=== PATIENT | male | born 1955 | race Caucasian/White ===

== ENCOUNTER → 2021-08-09 | Outpatient (CLI) | payer MEDICARE ==
[~2021-08-09] MED LIST: ASPIRIN EC81 M1 PO; LIPITOR 20 MG T20 M1 PO; MONOPRIL20 MG PO; MONOSTAT PO; SIMVASTATIN10 MG PO; SINGULAIR 10 MG10 MG PO
== END ==
LOC: LAB 05:35
PROVIDERS: ATTEND Student in an Organized Health Care Education/Training Program
DX: Z01.812 Encounter for preprocedural laboratory examination (principal); Z20.822 Contact with and (suspected) exposure to COVID-19

== ENCOUNTER → 2021-08-11 | Outpatient (CLI) | payer BC ==
[~2021-08-11] VITALS: Ht 167.6 cm; Wt 83.9 kg
--- NOTE | 2021-08-14 14:59 | P ---
[facility] [place] [address] PROCEDURE REPORT Name: MARYCARMEN BREEN Room #: [facility] Roddy.#: [id number] Admission: 08/11/21 Attend Phys: Felix Romano Discharge: Date of : 53 Report #: [id number] THIS REPORT FOR: cc: Chrystal Drake MD,Felix Barone MD, MD ~ cc: Chrystal Drake MD DATE OF SERVICE: 08/11/2021 PROCEDURE PERFORMED: Colonoscopy with polypectomies. HISTORY OF PRESENT ILLNESS: The patient is a 65-year-old male with a history of colon polyps. He is here for routine followup. Last colonoscopy was in 04/2016. He denies any symptoms. No family history of colon cancer. DESCRIPTION OF PROCEDURE: The risks and benefits of the procedure were explained to the patient, those risks including but not limited to bleeding, perforation and the risk of sedation. He understood these risks and gave informed consent. Sedation was given using propofol per Anesthesia. Next, a digital rectal exam was initially performed, which was normal. Next, using a standard Olympus colonoscope, the scope was placed in the patient's anus and advanced under direct vision to the cecum. The overall prep was good. The cecum and ileocecal valve were normal in appearance. In the ascending colon, a 7 mm sessile polyp was noted. This was removed by snare cautery, otherwise normal. Transverse and descending colon were normal. Multiple diverticula noted in the sigmoid colon. No evidence of inflammation, otherwise normal. In the rectum, four 3 mm sessile polyps were noted, all were removed with cold forceps. On retroflexion, small nonbleeding internal hemorrhoids were noted. The scope was then withdrawn and the procedure terminated. The patient tolerated the procedure well. IMPRESSION: 1. Colonic polyps as described above. 2. Sigmoid diverticulosis. 3. Internal hemorrhoids. 4. Otherwise, normal colonoscopy. RECOMMENDATIONS: 1. Await biopsy results. 2. Repeat colonoscopy in [address] [address] PROCEDURE REPORT Name: MARYCARMEN BREEN Room #: REG SEAN Abdul#: [id number] Admission: 08/11/21 Attend Phys: Felix Romano Discharge: Date of : 53 Report #: [id number] Thank you for allowing me to participate in his care. <ELECTRONICALLY SIGNED> By: Felix Dennis MD 08/14/21 [id number] [id number] Felix Dennis MD /nt
--- NOTE | 2021-08-15 13:08 | PATH ---
[facility] [address] [address] PATHOLOGY RPT PROCEDURE Name: COLON,MARYCARMEN Matta Room #: REG SEAN Higgins.#: [id number] Admission: 08/11/21 Date of : 53 Discharge: Report #: [id number] Path Case #: [id number] [facility] Accession Number: [id number] . 01 Material submitted: . PART A: colon - ASCENDING COLON POLYP. Modifiers: ascending PART B: rectum - RECTAL POLYP X4. Modifiers: X4 . 01 Clinical history: . COLONOSCOPY HX POLYPS . 02 Diagnosis: A. Large bowel "ascending colon polyp", biopsy: - Sessile serrated adenoma/polyp. - Negative for high-grade dysplasia and malignancy. . B. Large bowel "rectal polyp x 4", biopsy: - Hyperplastic polyp; negative for dysplasia and malignancy. (RIKA:umm; 08/14/2021) QTP 08/14/2021 1451 Local . 02 Electronically signed: . Abdulkadir Mays MD, Pathologist NPI- [id number] . 01 Gross description: . A. The specimen is received in formalin, labeled "Colon, Marycarmen, ascending colon polyp". Received are 4 segments of pale simon tissue ranging in size from 0.2-0.8 cm in maximum dimension. The specimen is entirely submitted in cassette A1. . B. The specimen is received in formalin, labeled "Colon, Marycarmen, rectal polyps x4". The source is additionally listed on the requisition as "rectal polyp x4". Received are 4 segments of pale simon tissue ranging in size from 0.2-0.3 cm in maximum dimensions. The specimen is entirely submitted in cassette B1. ([facility]; 08/11/2021) NRI/NRI 08/11/2021 1939 Local . 02 Pathologist provided ICD-10: D12.2, K62.1 . 02 CPT . 086509, 106660 Specimen Comment: A courtesy copy of this report has been sent to [phone], [phone] [address] PATHOLOGY RPT PROCEDURE Name: MARYCARMEN BREEN Room #: REG SEAN Abdul#: [id number] Admission: 08/11/21 Date of : 53 Discharge: Report #: [id number] Path Case #: [id number] Specimen Comment: [id number] Specimen Comment: Report sent to / DR THOMAS Specimen Comment: A duplicate report has been generated due to demographic updates. Performed at: 01 [facility] [address] [id number] MD David Lambert MD Phone: [phone] Performed at: 02 [facility] [address] [id number] MD Henry Stock MD Phone: [phone]
== END | disposition home or self-care (01) ==
LOC: GI
PROVIDERS: ATTEND Specialist
DX: Z12.11 Encounter for screening for malignant neoplasm of colon (principal); Z86.010 Personal history of colon polyps; D12.2 Benign neoplasm of ascending colon; K57.30 Diverticulosis of large intestine without perforation or abscess without bleeding; K64.8 Other hemorrhoids; I10 Essential (primary) hypertension; E78.5 Hyperlipidemia, unspecified; F17.210 Nicotine dependence, cigarettes, uncomplicated; G47.30 Sleep apnea, unspecified; Z98.890 Other specified postprocedural states; Z79.899 Other long term (current) drug therapy; Z98.41 Cataract extraction status, right eye; Z79.82 Long term (current) use of aspirin
CPT/HCPCS: 62110; 62900